=== PATIENT | female | born 1940 | race African-American/Black ===

== ENCOUNTER → 2018-05-09 | Outpatient (CLI) | payer OTHER ==
[2015-07-10 10:44] VITALS: BP 184/76
[~2018-05-09] MED LIST: CYAN10005 PO; FENO145T30 PO; FERR325T14 PO; HYDR-2762 PO; Hydrocodone/Acetaminophen PO; OLME1TAB25 PO; OMEP20CA9 PO
--- NOTE | 2018-05-09 12:45 | KCIC ---
EXAM: Bilateral digital screening mammogram with tomosynthesis. HISTORY: 77-year-old female presents for screening mammography. TECHNIQUE: Full-field digital craniocaudal and mediolateral oblique 2D and 3D tomosynthesis images of both breasts are obtained for evaluation. Computer aided detection with TrustEgg[employer] software version 9.3 was applied. COMPARISON: 05/08/2017 BREAST PARENCHYMAL DENSITY: Level B - Scattered fibroglandular densities. FINDINGS: There is increased nodularity within the 8:30 position of the right breast at mid depth and the 6:00 position of the left breast at anterior to mid depth and 2:00 position of the left breast at mid depth, allowing for differences in technique. There are few additional nodular densities which are stable. There are multiple benign calcifications. IMPRESSION: BI-RADS Category 0: Additional imaging needed. RECOMMENDATION: Further evaluation with a bilateral breast sonogram is recommended to assess areas of nodularity described above. If your mammogram demonstrates that you have dense breast tissue, which could hide abnormalities, and if you have other risk factors for breast cancer that have been identified, you might benefit from supplemental screening tests that may be suggested by your ordering physician. Dense breast tissue, in and of itself, is a relatively common condition. This information is not provided to cause undue concern, but rather to raise your awareness and to promote discussion with your physician regarding the presence of other risk factors, in addition to dense breast tissue. A report of your mammography results will be sent to you and your physician. You should contact your physician if you have any questions or concerns regarding this report. Mammography is a sensitive method for finding small breast cancers, but it does not detect them all and is not a substitute for careful clinical examination. A negative mammogram does not negate a clinically suspicious finding and should not result in delay in biopsying a clinically suspicious abnormality. PQRS compliance statement - Patient information was entered into a reminder system with a target due date for the next mammogram. "Our facility is accredited by the [employer] Mammography [employer]." Electronically signed by: Aidee Mondragon MD (05/09/2018 12:42 PM) [facility]
== END | disposition home or self-care (01) ==
LOC: KCIC MAMMO 09:01
PROVIDERS: ATTEND Nurse Practitioner
DX: Z12.31 Encounter for screening mammogram for malignant neoplasm of breast (principal)
CPT/HCPCS: 77063; 77067

== ENCOUNTER → 2018-05-23 | Outpatient (CLI) | payer OTHER ==
[2015-07-10 10:44] VITALS: BP 184/76
[~2018-05-23] MED LIST changes: -HYDR-2762 PO; +HYDR-2765 PO
--- NOTE | 2018-05-23 10:13 | KCIC ---
Bilateral breast ultrasound: Reason for examination: Nodular densities on screening mammogram. Comparison is made to mammographic exam dated 05/09/2018. Ultrasound examination of the left breast was performed in the areas of mammographic concern and at the left axilla. There is a 4.8 mm cyst at the 2:30 position 9 cm from the nipple. There is also a 9.6 mm cyst at the 6:00 position 3 cm from the nipple. No other cystic or solid lesions are seen. No abnormal appearing lymph nodes are seen in the left axilla. Ultrasound examination of the right breast was performed in the area of mammographic concern and at the right axilla. The right breast shows no cystic or solid nodules. The nodule seen mammographically may represent a small intramammary lymph node which is blending with the parenchymal tissues. No abnormal appearing lymph nodes are seen in the right axilla. IMPRESSION: Small cyst in the left breast. No focal abnormality seen in the right breast. The right breast nodule could represent a small intramammary lymph node. Recommend 6 month follow-up with right breast mammograms and ultrasound. BI-RADS Category 3: Probably Benign. "Our facility is accredited by the [employer] Mammography Program." This patient's information has been entered into a reminder system for the patient to be notified with the results of her examination and a target date for the next mammogram. Electronically signed by: Cher Juárez MD (05/23/2018 10:09 AM) [id number]
== END | disposition home or self-care (01) ==
LOC: KCIC US 08:47
PROVIDERS: ATTEND Nurse Practitioner
DX: N60.02 Solitary cyst of left breast (principal)
CPT/HCPCS: 76641

== ENCOUNTER 2018-09-27 10:39 | Emergency (ER) | payer OTHER ==
[~2018-09-27] VITALS: Ht 157.5 cm; Wt 104.3 kg
[~2018-09-27 10:39] MED LIST changes: +OMEP20CA10 PO; -OMEP20CA9 PO
[2018-09-27 10:56] VITALS: BP 133/71
[2018-09-27] MEDS ORDERED: HYDROcodone/APAP 5/325MG 1 TAB TABLET PO ONE (11:00)
--- NOTE | 2018-09-27 11:29 | PHYS DOC ---
Past Medical History Past Medical History: High Cholesterol, Hypertension, Renal Disease, Other Additional Past Medical Histor: CHRONIC BACK PAIN Past Surgical History: Other Additional Past Surgical Histo: bilat rotator cuff, parathyroid tumor Alcohol Use: None Drug Use: None Adult General Chief Complaint Chief Complaint: LOWER EXT PAIN HPI HPI 77-year-old female presents to ER via POV with complaints of right knee pain for the past 2 weeks which has gradually been worsening. She denies any falls or injury. She reports she does have history of arthritis. She reports she has been taking ibuprofen intermittently with minimal relief in symptoms. She denies taking any medications today for pain. She reports she did have Alfonzo wrap on yesterday denies any improvement in pain. She denies discoloration in lower extremities. She denies any recent travel or swelling/pain in calves. She denies numbness or tingling. She reports she has been walking however does have increased pain with weightbearing of right lower extremity. Review of Systems Review of Systems Constitutional: Denies fever or chills [] Respiratory: Denies cough or shortness of breath [] Cardiovascular: No additional information not addressed in HPI [] GI: Denies nausea, vomiting Musculoskeletal: Denies back pain. Reports rt knee pain w/swelling Integument: Denies rash or skin lesions [] Neurologic: Denies headache, focal weakness or sensory changes [] All other systems were reviewed and found to be within normal limits, except as documented in this note. Current Medications Current Medications Current Medications Medications (Trade) Dose Ordered Sig/Clyde Start Time Stop Time Status Last Admin Dose Admin Acetaminophen/ Hydrocodone Bitart (Lortab 5/325) 1 tab 1X ONCE 09/27/18 11:00 09/27/18 11:01 DC 09/27/18 11:06 1 TAB Allergies Allergies Allergies Coded Allergies Type Severity Reaction Last Updated Verified shrimp Allergy Intermediate Swelling 07/10/15 Yes Physical Exam Physical Exam Constitutional: Well developed, well nourished, no acute distress, non-toxic appearance. [] HENT: Normocephalic, atraumatic, oropharynx moist Eyes: Pupils equal, conjunctiva normal, no discharge. [] Neck: Normal range of motion, no tenderness, supple, no stridor. [] Cardiovascular:Heart rate regular rhythm, no murmur [] Lungs & Thorax: Bilateral breath sounds clear to auscultation [] Abdomen: Bowel sounds normal, soft, no tenderness, no masses, no pulsatile masses. [] Skin: Warm, dry, no erythema, no rash. [] Back: No tenderness, full ROM Extremities: No cyanosis, no clubbing, no edema. 2+ bilat. dorsalis pedis/ posterior tibial bilat. No tenderness in bilat. calves with size symmetric. Lt LE exam NL with no tenderness full ROM. Rt knee anterior/posterior tenderness on palp. with decreased ROM as she reports pain w/flexion/extension of joint. No erythema/ecchymosis. No obvious swelling on exam. Skin color NL distal/ proximal from rt knee. No palp. deformity Neurologic: Alert and oriented X 3, normal motor function, normal sensory function, no focal deficits noted. [] Psychologic: Affect normal, judgement normal, mood normal. [] Current Patient Data Vital Signs Vital Signs Date Time Temp Pulse Resp B/P (MAP) Pulse Ox O2 Delivery O2 Flow Rate FiO2 09/27/18 11:06 16 09/27/18 10:56 98.7 82 133/71 (91) 98 Room Air 98.7 EKG EKG [] Radiology/Procedures Radiology/Procedures PROCEDURE: KNEE RIGHT 3V KNEE RIGHT 3V History: RT KNEE PAIN, NO INJURY Comparison: None. Findings: 3 views right knee are submitted. There is advanced narrowing of the medial compartment joint space, mild to moderate narrowing of the lateral compartment joint space. There is also fairly advanced osteoarthritic change of the patellofemoral articulation. No acute fracture is identified. There is no significant joint effusion. Impression: 1. There is tricompartmental osteoarthritic change, severe degenerative change of the medial compartment and patellofemoral articulation. Electronically signed by: Brinda Dinero MD (09/27/2018 11:40 AM) [facility] DICTATED and SIGNED BY: BRINDA DINERO MD DATE: 09/27/18 1140 Course & Med Decision Making Course & Med Decision Making Pertinent Imaging studies reviewed. (See chart for details) 1145: Patient was provided with dose of [place] while in the ER as she had not taken any medications. She reports she has had no relief in pain. Discussed her taking a dose of ibuprofen when she returns to her home if pain has not improved. Discussed x-ray with patient with degenerative changes reported no acute findings for fractures. Discussed plans for Alfonzo wrap to right knee and patient to use her walker for ambulation. Discussed follow-up appointment she has scheduled with Dr. Bryson, orthopedics on 10/08/18 she plans to call the office to see if she can get an earlier appointment. Discussed pain control with [id number] ibuprofen and or Tylenol as directed on container-provide small quantity of [place] with discharge paperwork with education on medication and patient was advised not to drink alcohol or drive a vehicle while taking that medication and avoid additional Tylenol products. Was educated on increased risk for falls with narcotic use. On reexamination patient has had no change in right lower extremity examination she remains vascular intact. Education provided on signs and symptoms to return to ER. Discharge instructions were discussed. Patient to follow-up with primary care physician if symptoms persist or with any concerns. Dragon Disclaimer Dragon Disclaimer This electronic medical record was generated, in whole or in part, using a voice recognition dictation system. Departure Departure Impression: Primary Impression: Right knee pain Additional Impression: Osteoarthritis Disposition: 01 HOME, SELF-CARE Condition: STABLE Referrals: MATHIEU [facility] (PCP) VU BRYSON MD Patient Instructions: Knee Pain, Knee Wraps (Elastic Bandage) and RICE, Osteoarthritis Additional Instructions: Keep scheduled appointment with Dr. Bryson, orthopedics for reevaluation and further care. Ibuprofen and/or tylenol as directed on container as needed for pain- avoid tylenol if taking [place] prescription. Use walker for walking to stabilize and help with pain in right knee. Scripts Hydrocodone/Apap 5-325 (NORCO 5-325 TABLET) 1 Each Tablet 1 TAB PO PRN Q6HRS PRN for PAIN, #10 TAB 0 Refills Avoid driving or drinking alcohol while taking this medication Prov: LINSEY PEREZ APRN 09/27/18 Problem Qualifiers LINSEY PEREZ APRN Sep 27, 2018 11:29
--- NOTE | 2018-09-27 11:42 | RAD ---
KNEE RIGHT 3V History: RT KNEE PAIN, NO INJURY Comparison: None. Findings: 3 views right knee are submitted. There is advanced narrowing of the medial compartment joint space, mild to moderate narrowing of the lateral compartment joint space. There is also fairly advanced osteoarthritic change of the patellofemoral articulation. No acute fracture is identified. There is no significant joint effusion. Impression: 1. There is tricompartmental osteoarthritic change, severe degenerative change of the medial compartment and patellofemoral articulation. Electronically signed by: Tyrel German MD (09/27/2018 11:40 AM) [facility]
[2018-09-27] MEDS ORDERED: HYDR-3164 PO (11:56)
== END 2018-09-27 12:36 | disposition home or self-care (01) ==
LOC: ER 10:39
DX: I10 Essential (primary) hypertension (principal); M17.11 Unilateral primary osteoarthritis, right knee; E78.00 Pure hypercholesterolemia, unspecified; G89.29 Other chronic pain; Z91.013 Allergy to seafood
CPT/HCPCS: 73562; 99283

== ENCOUNTER → 2018-11-25 | Outpatient (CLI) | payer OTHER ==
[~2018-11-25] MED LIST changes: +HYDR-3164 PO
--- NOTE | 2018-11-25 13:00 | KCIC ---
Right breast diagnostic digital mammograms with 3-D tomosynthesis: Reason for examination: Follow-up nodule. Comparison is made to previous studies dated 05/09/2018 and 05/08/2017. Right breast mammograms in CC and oblique projections were obtained with 2-D imaging and 3-D tomosynthesis imaging on a Siemens Inspiration unit and reviewed on the workstation. Interpretation was made with the benefit of CAD. The skin and nipple show no abnormalities. No abnormal axillary lymph nodes are seen. The breast parenchyma shows scattered fatty and fibroglandular density. (Breast density: Category B.) There continues to be a small nodular parenchymal density in the 8:00 B position of the right breast which shows no significant interval change. There are no new dominant masses, suspicious calcifications or architectural distortion. Benign calcifications are present. Impression: No apparent interval change in the small nodular parenchymal density seen at approximately the 8:00 B position. Ultrasound to follow. BI-RAD Category 0: Incomplete. Needs additional imaging evaluation. Right breast ultrasound: Ultrasound examination of the right breast was performed in the area of mammographic concern and the axilla. In the 7:30 position 10 cm from the nipple, there is a small hypoechoic nodule measuring approximately 1 cm in greatest dimension which appears circumscribed and lies in parallel orientation and likely represents a small fibroadenoma. No other cystic or solid lesions are seen. No abnormal appearing lymph nodes are seen in the axilla. IMPRESSION: Small benign-appearing nodule at the 7:30 position which likely represents a fibroadenoma. Recommend reevaluation with ultrasound in 6 months at the time of bilateral mammograms. BI-RADS Category 3: Probably Benign. "Our facility is accredited by the [employer] Mammography Program." This patient's information has been entered into a reminder system for the patient to be notified with the results of her examination and a target date for the next mammogram. Electronically signed by: Cher Juárez MD (11/25/2018 12:57 PM) [facility]
== END | disposition home or self-care (01) ==
LOC: KCIC MAMMO 08:17
PROVIDERS: ATTEND Nurse Practitioner
DX: N64.89 Other specified disorders of breast (principal)
CPT/HCPCS: 76641; 77065; G0279; 77061

== ENCOUNTER → 2019-06-09 | Outpatient (CLI) | payer OTHER ==
[~2019-06-09] MED LIST changes: +CYAN-25 PO; -CYAN10005 PO; +OMEP-229 PO; -OMEP20CA10 PO
--- NOTE | 2019-06-09 16:36 | KCIC ---
Bilateral diagnostic digital mammograms with 3-D tomosynthesis: Reason for examination: Follow-up nodules. Comparison is made to previous studies dated 05/09/2018 and 05/08/2017. Bilateral mammograms in CC and oblique projections were obtained with 2-D imaging and 3-D tomosynthesis imaging on a Siemens Inspiration unit and reviewed on the workstation. Interpretation was made with the benefit of CAD. The skin and nipples show no abnormalities. No abnormal axillary lymph nodes are seen. The breast parenchyma is predominantly fatty. (Breast density: Category A.) There are no continue to be small nodular parenchymal densities bilaterally which are stable. There are no new dominant masses, suspicious calcifications or architectural distortion. Benign calcifications are present. Impression: No evidence of malignancy. Recommend routine screening. BI-RAD Category 2: Benign. "Our facility is accredited by the [employer] Mammography Program." This patient's information has been entered into a reminder system for the patient to be notified with the results of her examination and a target date for the next mammogram. Electronically signed by: Cher Juárez MD (06/09/2019 4:33 PM) [facility]
== END | disposition home or self-care (01) ==
LOC: KCIC MAMMO 12:58
PROVIDERS: ATTEND Nurse Practitioner
DX: R92.1 Mammographic calcification found on diagnostic imaging of breast (principal)
CPT/HCPCS: 77066; G0279; 77062

== ENCOUNTER 2019-09-23 16:07 | Emergency (ER) | payer MEDICARE ==
[~2019-09-23] VITALS: Ht 154.9 cm; Wt 99.0 kg
[~2019-09-23 16:07] MED LIST changes: -APIX5TAB PO
[2019-09-23 16:43] LABS: BASO # 0.1 x10^3/uL (0.0-0.2); BASO % 1 % (0-3); EOS # 0.3 x10^3/uL (0.0-0.7); EOS % 3 % (0-3); HEMATOCRIT 28.1 % (36.0-47.0); HEMOGLOBIN 9.6 g/dL (12.0-15.5); LYMPH # 2.4 x10^3/uL (1.0-4.8); LYMPH % 22 % (24-48); MEAN CORPUSCULAR HEMOGLOBIN 29 pg (25-35); MEAN CORPUSCULAR HGB CONC 34 g/dL (31-37); MEAN CORPUSCULAR VOLUME 85 fL (79-100); MONO # 0.7 x10^3/uL (0.0-1.1); MONO % 7 % (0-9); NEUT # 7.2 x10^3/uL (1.8-7.7); NEUT % 67 % (31-73); PLATELET COUNT 428 x10^3/uL (140-400); RED CELL DISTRIBUTION WIDTH 12.8 % (11.5-14.5); WHITE BLOOD COUNT 10.7 x10^3/uL (4.0-11.0)
[2019-09-23 16:46] LABS: CALCIUM 10.1 mg/dL (8.5-10.1); CREATININE 2.2 mg/dL (0.6-1.0); GFR 26.2; POTASSIUM 4.3 mmol/L (3.5-5.1); PROTHROMBIN TIME PATIENT 12.8 SEC (11.7-14.0)
[2019-09-23] MEDS ORDERED: APIX5TAB PO (16:56)
[2019-09-23] MEDS ORDERED: APIXABAN 5 MG TABLET. PO STA (16:58)
--- NOTE | 2019-09-23 17:10 | PHYS DOC ---
Past Medical History Past Medical History: GERD, High Cholesterol, Hypertension, Renal Disease, Other Additional Past Medical Histor: CHRONIC BACK PAIN Past Surgical History: Other Additional Past Surgical Histo: bilat rotator cuff, parathyroid tumor Smoking Status: Never Smoker Alcohol Use: None Drug Use: None Adult General Chief Complaint Chief Complaint: OTHER COMPLAINTS HPI HPI Patient is a 78 year old f with cc of leg swelling referred from Ultrasound due to positive DVT. Patient has had leg swelling for about a week if not longer. No chest pain or shortness of breath. She could go back to her primary's office because she was not in the office anymore. Patient denies any blood in the stool. She is never had any bleeding problems she tells me. She does sit a lot at her job. Review of Systems Review of Systems Constitutional: Denies fever or chills [] Eyes: Denies change in visual acuity, redness, or eye pain [] HENT: Denies nasal congestion or sore throat [] Respiratory: Denies cough or shortness of breath [] negative for chest pain. Musculoskeletal: All other systems were reviewed and found to be within normal limits, except as documented in this note. Current Medications Current Medications Current Medications Medications (Trade) Dose Ordered Sig/Clyde Start Time Stop Time Status Last Admin Dose Admin Apixaban (Eliquis) 10 mg 1X STAT 09/23/19 16:58 09/23/19 17:00 DC Allergies Allergies Allergies Coded Allergies Type Severity Reaction Last Updated Verified shrimp Allergy Intermediate Swelling 07/10/15 Yes Physical Exam Physical Exam Constitutional: Well developed, well nourished, no acute distress, non-toxic appearance. [] HENT: Normocephalic, atraumatic, bilateral external ears normal, oropharynx moist, no oral exudates, nose normal. [] Eyes: PERRLA, EOMI, conjunctiva normal, no discharge. [] Neck: Normal range of motion, no tenderness, supple, no stridor. [] Cardiovascular:Heart rate regular rhythm, no murmur [] Lungs & Thorax: Bilateral breath sounds clear to auscultation [] Abdomen: Bowel sounds normal, soft, no tenderness, no masses, no pulsatile masses. [] Skin: Warm, dry, no erythema, no rash. [] Back: No tenderness, no CVA tenderness. [] Extremities: No tenderness, no cyanosis, no clubbing, ROM intact asymmetric 3+ edema on the left much more than the right Neurologic: Alert and oriented X 3, normal motor function, normal sensory function, no focal deficits noted. [] Psychologic: Affect normal, judgement normal, mood normal. [] Current Patient Data Vital Signs Vital Signs Date Time Temp Pulse Resp B/P (MAP) Pulse Ox O2 Delivery O2 Flow Rate FiO2 09/23/19 16:29 98.4 87 20 199/88 (125) 98 Room Air 98.4 Lab Values Laboratory Tests Test 09/23/19 16:25 White Blood Count 10.7 x10^3/uL (4.0-11.0) Red Blood Count 3.30 x10^6/uL (3.50-5.40) L Hemoglobin 9.6 g/dL (12.0-15.5) L Hematocrit 28.1 % (36.0-47.0) L Mean Corpuscular Volume 85 fL (79-100) Mean Corpuscular Hemoglobin 29 pg (25-35) Mean Corpuscular Hemoglobin Concent 34 g/dL (31-37) Red Cell Distribution Width 12.8 % (11.5-14.5) Platelet Count 428 x10^3/uL (140-400) H Neutrophils (%) (Auto) 67 % (31-73) Lymphocytes (%) (Auto) 22 % (24-48) L Monocytes (%) (Auto) 7 % (0-9) Eosinophils (%) (Auto) 3 % (0-3) Basophils (%) (Auto) 1 % (0-3) Neutrophils # (Auto) 7.2 x10^3/uL (1.8-7.7) Lymphocytes # (Auto) 2.4 x10^3/uL (1.0-4.8) Monocytes # (Auto) 0.7 x10^3/uL (0.0-1.1) Eosinophils # (Auto) 0.3 x10^3/uL (0.0-0.7) Basophils # (Auto) 0.1 x10^3/uL (0.0-0.2) Prothrombin Time 12.8 SEC (11.7-14.0) Prothrombin Time INR 1.0 (0.8-1.1) Sodium Level 139 mmol/L (136-145) Potassium Level 4.3 mmol/L (3.5-5.1) Chloride Level 105 mmol/L (98-107) Carbon Dioxide Level 24 mmol/L (21-32) Anion Gap 10 (6-14) Blood Urea Nitrogen 27 mg/dL (7-20) H Creatinine 2.2 mg/dL (0.6-1.0) H Estimated GFR (Cockcroft-Gault) 26.2 Glucose Level 103 mg/dL (70-99) H Calcium Level 10.1 mg/dL (8.5-10.1) Laboratory Tests 09/23/19 16:25 Laboratory Tests 09/23/19 16:25 EKG EKG [] Interpretation Time: IMPRESSION: * Deep vein thrombosis is identified within the popliteal vein extending into the calf. Report called to the on-call physician for the ordering provider's office at 3:42 PM on date of exam. Electronically signed by: Dexter Parry MD (09/23/2019 3:53 PM) [id number] DICTATED and SIGNED BY: DEXTER PARRY MD DATE: 09/23/19 1553 Radiology/Procedures Radiology/Procedures [] Impressions: Noted the bump in creatinine noted the ultrasound showing a positive DVT on the left. Course & Med Decision Making Course & Med Decision Making Pertinent Labs and Imaging studies reviewed. (See chart for details) [] 78-year-old female with chronic kidney disease high cholesterol hypertension presenting with left leg swelling found to have a DVT. I checked with pharmacy regarding dosing they say Eliquis dosing can be the same dose 10 mg p.o. twice daily for 1 week and then 5 mg p.o. twice daily after that. I did give the patient a prescription for a week of Eliquis as well as the first dose here in the emergency room she says she has an appoint with her primary doctor on Saturday this Saturday which is 5 days from now I think that sounds good. Return precautions discussed. Specifically we talked about the risk of bleeding and should there be any signs or symptoms of bleeding to come back right away and she understands. Dragon Disclaimer Dragon Disclaimer This electronic medical record was generated, in whole or in part, using a voice recognition dictation system. Departure Departure Impression: Primary Impression: Deep venous thrombosis Disposition: HOME, SELF-CARE Condition: STABLE Patient Instructions: Deep Vein Thrombosis Scripts Apixaban (ELIQUIS) 5 Mg Tablet 10 MG PO BID for 7 Days, #28 TAB TAKE 10 MG PO BID X 7 DAYS, THEN FOLLOW UP WITH PRIMARY DOCTOR FOR FURHTER PRESCRIPTION. Prov: CHARLY MIKE MD 09/23/19 CHARLY MIKE MD Sep 23, 2019 17:10
[2019-09-23 17:25] VITALS: BP 167/72
== END 2019-09-23 17:32 | disposition home or self-care (01) ==
LOC: ER 16:07
DX: I82.432 Acute embolism and thrombosis of left popliteal vein (principal); I10 Essential (primary) hypertension; E78.00 Pure hypercholesterolemia, unspecified; K21.9 Gastro-esophageal reflux disease without esophagitis; G89.29 Other chronic pain; Z91.013 Allergy to seafood
CPT/HCPCS: 36415; 80048; 85025; 85610; 99283

== ENCOUNTER → 2019-09-23 | Outpatient (CLI) | payer MEDICARE, OTHER ==
[~2019-09-23] MED LIST changes: +APIX5TAB PO; +FENO145T3 PO; -FENO145T30 PO; -OMEP-229 PO; +OMEP20CA16 PO
--- NOTE | 2019-09-23 15:56 | RAD ---
INDICATION: Leg swelling COMPARISON: None. TECHNIQUE: Grayscale, color and doppler ultrasound images were obtained of the left lower extremity venous vasculature. LEFT: Vascular flow is seen within the left common femoral and superficial femoral vein. Partial thrombus at popliteal vein extending into calf veins. IMPRESSION: * Deep vein thrombosis is identified within the popliteal vein extending into the calf. Report called to the on-call physician for the ordering provider's office at 3:42 PM on date of exam. Electronically signed by: Sonny Parry MD (09/23/2019 3:53 PM) [id number]
== END | disposition home or self-care (01) ==
LOC: US 15:08
PROVIDERS: ATTEND Nurse Practitioner
DX: I82.4Z2 Acute embolism and thrombosis of unspecified deep veins of left distal lower extremity (principal); M79.662 Pain in left lower leg
CPT/HCPCS: 93971

== ENCOUNTER 2019-10-29 08:22 | Outpatient (CLI) | payer MEDICARE ==
[2019-10-29] VITALS (11 sets, daily range): BP systolic 145–189; BP diastolic 58–85
[~2019-10-29] VITALS: Ht 154.9 cm; Wt 98.9 kg
[~2019-10-29 08:22] MED LIST changes: +APIX5TAB PO
[2019-10-29] MEDS ORDERED: APIX5TAB PO (08:44)
[2019-10-29] MEDS ORDERED: AMLO10TA8 PO (08:44)
[2019-10-29] MEDS ORDERED: ALEN70TA6 PO (08:44)
[2019-10-29 08:49] LABS: BASO # 0.1 x10^3/uL (0.0-0.2); BASO % 1 % (0-3); EOS # 0.2 x10^3/uL (0.0-0.7); EOS % 3 % (0-3); HEMATOCRIT 28.5 % (36.0-47.0); HEMOGLOBIN 9.6 g/dL (12.0-15.5); LYMPH # 1.9 x10^3/uL (1.0-4.8); LYMPH % 23 % (24-48); MEAN CORPUSCULAR HEMOGLOBIN 29 pg (25-35); MEAN CORPUSCULAR HGB CONC 34 g/dL (31-37); MEAN CORPUSCULAR VOLUME 85 fL (79-100); MONO # 0.6 x10^3/uL (0.0-1.1); MONO % 7 % (0-9); NEUT # 5.7 x10^3/uL (1.8-7.7); NEUT % 67 % (31-73); PLATELET COUNT 390 x10^3/uL (140-400); RED BLOOD COUNT 3.36 x10^6/uL (3.50-5.40); RED CELL DISTRIBUTION WIDTH 12.7 % (11.5-14.5); WHITE BLOOD COUNT 8.6 x10^3/uL (4.0-11.0)
[2019-10-29] MEDS ORDERED: LIDOCAINE WITH 8.4% SOD BICARB 3 ML DISP.SYRIN. ONE ×2 (08:55→09:04)
[2019-10-29 08:59] LABS: PROTHROMBIN TIME PATIENT 14.2 SEC (11.7-14.0)
[2019-10-29] MEDS ORDERED: MIDAZOLAM HCL/PF 2 MG/2 ML VIAL. ONE (09:24)
[2019-10-29] MEDS ORDERED: fentaNYL PF VIAL 100 MCG/2 ML VIAL ONE (09:24)
[2019-10-29] MEDS ORDERED: fentaNYL PF VIAL 100 MCG/2 ML VIAL IV ONE (09:30)
[2019-10-29] MEDS ORDERED: MIDAZOLAM HCL/PF 2 MG/2 ML VIAL. IV ONE (09:30)
[2019-10-29] MEDS ORDERED: LIDOCAINE WITH 8.4% SOD BICARB 3 ML DISP.SYRIN. IJ ONE (09:30)
--- NOTE | 2019-10-29 09:58 | PDOC ---
MODERATE SEDATION ASSESSMENT RISKS/ALTERNATIVES Risks/Alternatives Risks and alternatives of this type of sedation and procedure discussed with: RISK/ALTERNATIVES: Patient H & P ON CHART H & P H & P on chart and reviewed for co-morbid conditions and appropriate labs. H&P ON CHART: Yes STATUS PREG STATUS ASSESSED: Yes MEDS/ALLERGIES REVIEWED Meds/Allergies Reviewed Medications and Allergies including time and route of recently administered narcotics and sedatives. MEDS/ALLERGIES REVIEWED: Yes ASA RATING ASA RATING: II AIRWAY ASSESSMENT Airway Assessment Airway patency, oral function limitations, presence of caps, crowns, dentures, partials, and ability to extend neck assessed. AIRWAY ASSESSMENT: Yes MALLAMPATI SCORE MALLAMPATI SCORE: II PRE-SEDATION ASSESSMENT PRE-SEDATION ASSESSMENT: Yes DAVID THORNTON MD Oct 29, 2019 09:58
--- NOTE | 2019-10-29 10:00 | PDOC ---
BRIEF OPERATIVE NOTE Pre-Op Diagnosis Anemia Post-Op Diagnosis same Procedure Performed CT Bone Marrow Biopsy Surgeon Jacqueline Anesthesia Type: Conscious Sedation Specimens Obtained 2 x 2cc aspirates and 1 x 10g core Findings CT Bone Marrow Biopsy Complications No immediate DAVID THORNTON MD Oct 29, 2019 10:00
--- NOTE | 2019-10-29 10:14 | RAD ---
Procedure: CT-guided bone marrow aspiration and biopsy Clinical Indication: Adult female with anemia Sedation: Conscious sedation was administered with a total intraprocedural [id number] time of 10 minutes. The patient was monitored by a qualified independent observer throughout the time of sedation. Please refer to the medical record for exact doses of medications utilized to achieve moderate sedation. Antibiotics: None Fluoro Time: Not applicable Contrast: None Sterility: The procedure was performed in its entirety using appropriate elements of sterile technique. Consent: The procedure was explained in its entirety to the patient or the patients designated event representative by a member of the treatment team, including a discussion of the risks, benefits and commonly accepted alternatives to the procedure, as well as the expected consequences of no therapy whatsoever. Discussion of the risks included, but was not limited to, those that are most frequent and those that are rare but possibly severe or life-threatening, as well as the possibility of unforeseen complications. Technique and Findings: Following informed consent, the patient was prepped and draped in usual sterile fashion. Preliminary CT scan of the area of interest was performed. 1% Lidocaine was used to achieve local anesthesia. Under periodic CT surveillance, an 11-gauge needle was advanced through the cortex of the posterior superior iliac spine and 2 separate 2 mL marrow aspirates were obtained and preserved on site by the cytopathology technologist. A single 11-gauge core biopsy specimen was then obtained and preserved in formalin. The needle was then removed and hemostasis was achieved with manual compression. Complications: No immediate Impression: 1. CT-guided bone marrow aspiration and biopsy as described PQRS Compliance Statement: One or more of the following individualized dose reduction techniques were utilized for this examination: 1. Automated exposure control 2. Adjustment of the mA and/or kV according to patient size 3. Use of iterative reconstruction technique
--- NOTE | 2019-10-29 11:59 | NUR ---
Discharge Note: JORDY HERBERT Discharge instructions and discharge home medications reviewed with Patient and a copy given. All questions have been answered and understanding verbalized. The following instructions and handouts were given: bone marrow biopsy aftercare and adult moderate sedation Discontinued lines and drains: Peripheral IV intact. Patient discharged to Home or Self Care withFamily Membervia Wheelchair
== END 2019-10-29 12:00 | disposition home or self-care (01) ==
LOC: INTRAD 08:22
PROVIDERS: ATTEND Internal Medicine Hematology & Oncology
DX: D64.9 Anemia, unspecified (principal); Z79.899 Other long term (current) drug therapy; Z79.01 Long term (current) use of anticoagulants
CPT/HCPCS: 36415; 38222; 77012; 81256; 85025; 85610; 85730; 86200; 88184; 88185; 88237; 99152; J2250; J3010; J3490

== ENCOUNTER → 2020-01-19 | Outpatient (CLI) | payer MEDICARE ==
[2019-10-29 11:35] VITALS: BP 145/68
[~2020-01-19] MED LIST changes: +ALEN70TA6 PO; +AMLO10TA8 PO
[2020-01-19 10:15] LABS: BASO # 0.1 x10^3/uL (0.0-0.2); BASO % 1 % (0-3); EOS # 0.2 x10^3/uL (0.0-0.7); EOS % 3 % (0-3); HEMATOCRIT 32.5 % (36.0-47.0); HEMOGLOBIN 11.3 g/dL (12.0-15.5); LYMPH # 1.7 x10^3/uL (1.0-4.8); LYMPH % 20 % (24-48); MEAN CORPUSCULAR HEMOGLOBIN 29 pg (25-35); MEAN CORPUSCULAR HGB CONC 35 g/dL (31-37); MEAN CORPUSCULAR VOLUME 85 fL (79-100); MONO # 0.6 x10^3/uL (0.0-1.1); MONO % 8 % (0-9); NEUT # 5.9 x10^3/uL (1.8-7.7); NEUT % 68 % (31-73); PLATELET COUNT 332 x10^3/uL (140-400); RED BLOOD COUNT 3.83 x10^6/uL (3.50-5.40); RED CELL DISTRIBUTION WIDTH 12.5 % (11.5-14.5); WHITE BLOOD COUNT 8.6 x10^3/uL (4.0-11.0)
[2020-01-19 10:31] LABS: CALCIUM 9.8 mg/dL (8.5-10.1); CREATININE 1.6 mg/dL (0.6-1.0); GFR 37.7; POTASSIUM 5.1 mmol/L (3.5-5.1)
[2020-01-19 10:43] LABS: ALBUMIN 4.1 g/dL (3.4-5.0); DIRECT BILIRUBIN 0.1 mg/dL (0.0-0.2); TOTAL BILIRUBIN 0.3 mg/dL (0.2-1.0); TOTAL PROTEIN 8.2 g/dL (6.4-8.2)
[2020-01-21 13:13] LABS: KAPPA FREE 48.9 mg/L (3.3-19.4); LAMBDA FREE 25.8 mg/L (5.7-26.3)
[2020-01-22 16:11] LABS: IMMUNOGLOBULIN A 332 mg/dL (64-422); IMMUNOGLOBULIN G 1265 mg/dL (586-1602); IMMUNOGLOBULIN M 47 mg/dL (26-217)
== END | disposition home or self-care (01) ==
LOC: ONCLAB 09:21
PROVIDERS: ATTEND Physician Assistant
DX: D64.9 Anemia, unspecified (principal)
CPT/HCPCS: 36415; 80048; 80076; 82784; 83520; 83615; 84550; 85025; 86334

== ENCOUNTER → 2020-04-20 | Outpatient (CLI) | payer MEDICARE ==
[2019-10-29 11:35] VITALS: BP 145/68
[~2020-04-20] MED LIST changes: -ALEN70TA6 PO; +ALEN70TA60 PO; +AMLO-187 PO; -AMLO10TA8 PO
[2020-04-20 13:00] LABS: CALCIUM 9.9 mg/dL (8.5-10.1); CREATININE 1.8 mg/dL (0.6-1.0); GFR 32.9; POTASSIUM 4.6 mmol/L (3.5-5.1)
[2020-04-20 13:15] LABS: BASO # 0.2 x10^3/uL (0.0-0.2); BASO % 2 % (0-3); EOS # 0.2 x10^3/uL (0.0-0.7); EOS % 2 % (0-3); HEMATOCRIT 31.1 % (36.0-47.0); HEMOGLOBIN 11.1 g/dL (12.0-15.5); LYMPH # 1.9 x10^3/uL (1.0-4.8); LYMPH % 18 % (24-48); MEAN CORPUSCULAR HEMOGLOBIN 30 pg (25-35); MEAN CORPUSCULAR HGB CONC 36 g/dL (31-37); MEAN CORPUSCULAR VOLUME 85 fL (79-100); MONO # 0.6 x10^3/uL (0.0-1.1); MONO % 6 % (0-9); NEUT # 7.8 x10^3/uL (1.8-7.7); NEUT % 73 % (31-73); PLATELET COUNT 355 x10^3/uL (140-400); RED BLOOD COUNT 3.65 x10^6/uL (3.50-5.40); RED CELL DISTRIBUTION WIDTH 12.9 % (11.5-14.5); WHITE BLOOD COUNT 10.7 x10^3/uL (4.0-11.0)
== END ==
LOC: ONCLAB 12:24
PROVIDERS: ATTEND Internal Medicine Hematology & Oncology
DX: D64.9 Anemia, unspecified (principal)
CPT/HCPCS: 36415; 80048; 85025

== ENCOUNTER → 2020-04-21 | Outpatient (CLI) | payer MEDICARE ==
[2019-10-29 11:35] VITALS: BP 145/68
--- NOTE | 2020-04-21 14:17 | RAD ---
Bilateral lower extremity venous doppler ultrasound History: Bilateral leg swelling, history of deep venous thrombosis Comparison: Left exam September 23, 2019 Findings: Multiple grayscale, color, and duplex spectral analysis sonographic images were acquired of the bilateral lower extremity veins to evaluate for the presence of DVT. There is no thrombus demonstrated of the interrogated right lower extremity veins, normal phasicity and color-flow. On the left, there is some residual nonocclusive thrombus of the left popliteal vein although likely decreased. Left calf veins are difficult to visualize on this exam, visualization of one of the posterior tibial veins. There is edema of the soft tissues. Impression: 1. 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 Left calf veins are not well visualized on this exam, uncertain if patent. 2. There is edema of the soft tissues. 3. There is no thrombus demonstrated of the right lower extremity veins. Electronically signed by: Tyrel German MD (04/21/2020 2:14 PM) [facility]olly
== END ==
LOC: US 12:29
PROVIDERS: ATTEND Nurse Practitioner
DX: I82.493 Acute embolism and thrombosis of other specified deep vein of lower extremity, bilateral (principal); M79.89 Other specified soft tissue disorders
CPT/HCPCS: 93970

== ENCOUNTER → 2020-07-04 | Outpatient (CLI) | payer MEDICARE ==
[2019-10-29 11:35] VITALS: BP 145/68
--- NOTE | 2020-07-04 15:35 | KCIC ---
EXAM: Bilateral digital screening mammogram with tomosynthesis. HISTORY: 79-year-old female presents for screening mammography. TECHNIQUE: Full-field digital craniocaudal and mediolateral oblique 2D and 3D tomosynthesis images of both breasts are obtained for evaluation. Computer aided detection was applied. COMPARISON: 06/09/2019 BREAST PARENCHYMAL DENSITY: Level B - Scattered fibroglandular densities. FINDINGS: There is no new suspicious mass, microcalcification or region of architectural distortion. There is stable areas of nodularity within both breasts. There are multiple benign scattered and clus tered calcifications within both breasts. No calcification with suspicious morphology is seen. IMPRESSION: BI-RADS Category 2: Benign finding(s). RECOMMENDATION: Annual mammography is recommended. If your mammogram demonstrates that you have dense breast tissue, which could hide abnormalities, and if you have other risk factors for breast cancer that have been identified, you might benefit from s upplemental screening tests that may be suggested by your ordering physician. Dense breast tissue, i n and of itself, is a relatively common condition. This information is not provided to cause undue c oncern, but rather to raise your awareness and to promote discussion with your physician regarding th e presence of other risk factors, in addition to dense breast tissue. A report of your mammography re sults will be sent to you and your physician. You should contact your physician if you have any ques tions or concerns regarding this report. Mammography is a sensitive method for finding small breast cancers, but it does not detect them all a nd is not a substitute for careful clinical examination. A negative mammogram does not negate a clin ically suspicious finding and should not result in delay in biopsying a clinically suspicious abnorma lity. PQRS compliance statement - Patient information was entered into a reminder system with a target due date for the next mammogram. "Our facility is accredited by the [employer] Mammography [employer]." Electronically signed by: Aidee Mondragon MD (07/04/2020 3:33 PM) [id number]
== END ==
LOC: KCIC MAMMO 14:07
PROVIDERS: ATTEND Nurse Practitioner
DX: Z12.31 Encounter for screening mammogram for malignant neoplasm of breast (principal)
CPT/HCPCS: 77063; 77067

== ENCOUNTER → 2020-10-20 | Outpatient (CLI) | payer MEDICARE ==
[2019-10-29 11:35] VITALS: BP 145/68
[~2020-10-20] MED LIST changes: -ALEN70TA60 PO; +ALEN70TA71 PO
[2020-10-20 15:36] LABS: BASO % 0 % (0-3); EOS # 0.4 x10^3/uL (0.0-0.7); EOS % 4 % (0-3); HEMATOCRIT 30.7 % (36.0-47.0); HEMOGLOBIN 10.6 g/dL (12.0-15.5); LYMPH # 2.6 x10^3/uL (1.0-4.8); LYMPH % 24 % (24-48); MEAN CORPUSCULAR HEMOGLOBIN 29 pg (25-35); MEAN CORPUSCULAR HGB CONC 35 g/dL (31-37); MEAN CORPUSCULAR VOLUME 85 fL (79-100); MONO # 0.7 x10^3/uL (0.0-1.1); MONO % 7 % (0-9); NEUT # 7.1 x10^3/uL (1.8-7.7); NEUT % 65 % (31-73); PLATELET COUNT 390 x10^3/uL (140-400); RED BLOOD COUNT 3.62 x10^6/uL (3.50-5.40); RED CELL DISTRIBUTION WIDTH 12.4 % (11.5-14.5); WHITE BLOOD COUNT 10.9 x10^3/uL (4.0-11.0)
[2020-10-20 15:46] LABS: CALCIUM 10.1 mg/dL (8.5-10.1); CREATININE 1.7 mg/dL (0.6-1.0); GFR 35.2; POTASSIUM 4.8 mmol/L (3.5-5.1)
[2020-10-21 17:11] LABS: KAPPA FREE 49.1 mg/L (3.3-19.4); KAPPA LAMBDA RATIO 1.75 (0.26-1.65); LAMBDA FREE 28.1 mg/L (5.7-26.3)
== END ==
LOC: ONCLAB 14:49
PROVIDERS: ATTEND Physician Assistant
DX: C64.9 Malignant neoplasm of unspecified kidney, except renal pelvis (principal); D64.9 Anemia, unspecified
CPT/HCPCS: 36415; 80048; 82668; 83520; 84165; 85025

== ENCOUNTER → 2021-01-17 | Outpatient (CLI) | payer MEDICARE ==
[2019-10-29 11:35] VITALS: BP 145/68
--- NOTE | 2021-01-17 12:20 | RAD ---
EXAM: Nuclear parathyroid scan. HISTORY: Hyperparathyroidism. TECHNIQUE: Immediate and 3 hour delayed sonographic images of the neck were obtained following the ad ministration of 21.29 mCi technetium 99m sestamibi IV. COMPARISON: Correlation is made with a remote thyroid sonogram performed 03/27/2015. There is no recen t study for comparison. FINDINGS: There is slight asymmetric increased activity within the right greater than left thyroid be d on immediate and delayed images. There is physiologic activity within the parotid and submandibular glands. IMPRESSION: Slight asymmetric radiotracer activity within the right greater than left thyroid bed. Th is may be due to asymmetry in thyroid lobe size. The possibility of a thyroid nodule or parathyroid a denoma is not excluded on this exam. Correlation with a recent neck sonogram or CT is recommended for better characterization. There is no recent comparison study available for correlation at the time o f dictation. Electronically signed by: Aidee Mondragon MD (01/17/2021 12:18 PM) [id number]
== END ==
LOC: NM 09:05
PROVIDERS: ATTEND Internal Medicine Nephrology
DX: E21.3 Hyperparathyroidism, unspecified (principal)
CPT/HCPCS: 78070; A9500

== ENCOUNTER → 2021-02-20 | Outpatient (CLI) | payer MEDICARE ==
[2019-10-29 11:35] VITALS: BP 145/68
[2021-02-20 16:22] LABS: BASO # 0.3 x10^3/uL (0.0-0.2); BASO % 2 % (0-3); EOS # 0.2 x10^3/uL (0.0-0.7); EOS % 2 % (0-3); HEMATOCRIT 29.7 % (36.0-47.0); HEMOGLOBIN 10.2 g/dL (12.0-15.5); LYMPH # 2.5 x10^3/uL (1.0-4.8); LYMPH % 22 % (24-48); MEAN CORPUSCULAR HEMOGLOBIN 29 pg (25-35); MEAN CORPUSCULAR HGB CONC 34 g/dL (31-37); MEAN CORPUSCULAR VOLUME 85 fL (79-100); MONO # 0.6 x10^3/uL (0.0-1.1); MONO % 6 % (0-9); NEUT # 7.7 x10^3/uL (1.8-7.7); NEUT % 68 % (31-73); PLATELET COUNT 339 x10^3/uL (140-400); RED BLOOD COUNT 3.49 x10^6/uL (3.50-5.40); RED CELL DISTRIBUTION WIDTH 12.5 % (11.5-14.5); WHITE BLOOD COUNT 11.3 x10^3/uL (4.0-11.0)
[2021-02-20 16:38] LABS: CALCIUM 10.6 mg/dL (8.5-10.1); CREATININE 1.7 mg/dL (0.6-1.0); GFR 35.1; POTASSIUM 4.6 mmol/L (3.5-5.1)
== END ==
LOC: ONCLAB 16:00
PROVIDERS: ATTEND Internal Medicine Hematology & Oncology
DX: D64.9 Anemia, unspecified (principal)
CPT/HCPCS: 36415; 80048; 85025

== ENCOUNTER → 2021-07-12 | Outpatient (CLI) | payer MEDICARE ==
[2019-10-29 11:35] VITALS: BP 145/68
--- NOTE | 2021-07-12 15:31 | KCIC ---
Bilateral digital screening mammograms with 3-D tomosynthesis: Reason for examination: Routine screening. Comparison is made to previous studies dated back to 05/09/2018.. Bilateral mammograms in CC and oblique projections were obtained with 2-D imaging and 3-D tomosynthes is imaging on a Siemens Inspiration unit and reviewed on the workstation. Interpretation was made wit h the benefit of CAD. The skin and nipples show no abnormalities. No abnormal axillary lymph nodes are seen. The breast par enchyma is predominantly fatty. (Breast density: Category A.) There are no new dominant masses, suspi cious calcifications or architectural distortion. Benign calcifications are present. Impression: No evidence of malignancy. Recommend routine screening. BI-RAD Category 2: Benign. "Our facility is accredited by the [employer] Mammography [employer]." This patient's information has been entered into a reminder system for the patient to be notified wit h the results of her examination and a target date for the next mammogram. Electronically signed by: Cher Juárez MD (07/12/2021 3:28 PM) [id number]
== END ==
LOC: KCIC MAMMO 13:39
PROVIDERS: ATTEND Nurse Practitioner Family
DX: Z12.31 Encounter for screening mammogram for malignant neoplasm of breast (principal)
CPT/HCPCS: 77063; 77067

== ENCOUNTER → 2021-08-23 | Outpatient (CLI) | payer MEDICARE ==
[2019-10-29 11:35] VITALS: BP 145/68
[2021-08-23 15:54] LABS: BASO # 0.2 x10^3/uL (0.0-0.2); BASO % 2 % (0-3); EOS # 0.3 x10^3/uL (0.0-0.7); EOS % 3 % (0-3); HEMATOCRIT 30.9 % (36.0-47.0); HEMOGLOBIN 10.2 g/dL (12.0-15.5); LYMPH # 2.5 x10^3/uL (1.0-4.8); LYMPH % 23 % (24-48); MEAN CORPUSCULAR HEMOGLOBIN 28 pg (25-35); MEAN CORPUSCULAR HGB CONC 33 g/dL (31-37); MEAN CORPUSCULAR VOLUME 86 fL (79-100); MONO # 0.7 x10^3/uL (0.0-1.1); MONO % 7 % (0-9); NEUT % 65 % (31-73); PLATELET COUNT 362 x10^3/uL (140-400); RED BLOOD COUNT 3.59 x10^6/uL (3.50-5.40); RED CELL DISTRIBUTION WIDTH 12.8 % (11.5-14.5); WHITE BLOOD COUNT 10.8 x10^3/uL (4.0-11.0)
[2021-08-23 16:02] LABS: CALCIUM 8.5 mg/dL (8.5-10.1); CREATININE 1.8 mg/dL (0.6-1.0); GFR 32.8; POTASSIUM 4.6 mmol/L (3.5-5.1)
== END ==
LOC: ONCLAB 15:29
PROVIDERS: ATTEND Internal Medicine Hematology & Oncology
DX: N18.9 Chronic kidney disease, unspecified (principal); D64.9 Anemia, unspecified
CPT/HCPCS: 36415; 80048; 84550; 85025